=== PATIENT | male | born 1975 | race Caucasian/White ===

== ENCOUNTER 2024-08-15 05:58 | Emergency (ER) | payer OTHER ==
[2024-08-15 06:26] VITALS: BP 133/88; PULSE 99; RESP 18; BMI 26.6
[2024-08-15] MEDS ORDERED: KETOROLAC TROMETHAMINE 30 MG/1 ML VIAL ONE (07:21)
[2024-08-15] MEDS ORDERED: ACETAMINOPHEN 500 MG TABLET (FP) ONE (07:21)
[2024-08-15] MEDS: KETOROLAC TROMETHAMINE 30 MG/1 ML VIAL IM ONE (07:32)
[2024-08-15] MEDS: ACETAMINOPHEN 500 MG TABLET (FP) PO ONE (07:32)
[2024-08-15 07:58] VITALS: TEMP 99.5
== END 2024-08-15 08:02 | disposition home or self-care (01) ==
LOC: JER 05:58
PROC: 3E0133Z Introduction of Anti-inflammatory into Subcutaneous Tissue, Percutaneous Approach (ICD-10-PCS; principal; 2024-08-15)
DX: J02.0 Streptococcal pharyngitis (principal); R50.9 Fever, unspecified; M79.10 Myalgia, unspecified site
CPT/HCPCS: 87651; 99284-25